=== PATIENT | male | born 1965 | race Caucasian/White ===

== ENCOUNTER → 2018-08-10 | Outpatient (REF) | payer BC ==
[~2018-08-10] MED LIST: ATOR40TA75 PO; CYAN1000VL IM; FISH1000 PO; HYDR-2807 PO; MELO15TA28 PO; PRIL20CA9 PO; TIZA2CAP PO
== END ==
LOC: M SFHCPLAZ 12:08
PROVIDERS: ATTEND Dermatology
DX: D23.61 Other benign neoplasm of skin of right upper limb, including shoulder (principal); L57.0 Actinic keratosis

== ENCOUNTER → 2019-11-19 | Outpatient (CLI) | payer BC ==
[~2019-11-19] MED LIST changes: +GASTROGRAFIN SOLUTION 30ML (Q9963) As Ordered ONE; +ISOVUE-370 76% 100ML VIAL (Q9967) As Ordered ONE
--- NOTE | 2019-11-19 13:17 | REP ---
REASON: Right lower quadrant pain. PRIORS: None. CONTRAST: 100 mL Isovue 370. Lung bases are clear. The liver, gallbladder, spleen, pancreas, adrenal glands, and kidneys are normal. The abdominal aorta and paraaortic regions are normal. The bowel loops and their mesenteries are within normal limits. There is no free fluid or free air. There is no mass or adenopathy. CT PELVIS: The bowel loops and their mesenteries are within normal limits. There is no mass or adenopathy. There is no free fluid or free air. The imaged osseous structures are within normal limits. IMPRESSION: CT findings are within normal limits. Electronically Signed by Joseph Morris DO 11/19/2019 01:53 P
[2019-11-19 13:54] LABS: BASO # 0.1 10^3/uL (0.0-0.2); BASO % 0.9 % (0.0-1.0); EOS # 0.2 10^3/uL (0.0-0.5); EOS % 2.8 % (0.0-3.0); HEMATOCRIT 47.8 % (42.0-52.0); HEMOGLOBIN 16.3 g/dl (13.5-17.5); LYMPH # 3.3 10^3/uL (1.5-5.0); LYMPH % 40.3 % (24.0-44.0); MEAN CORPUSCULAR HEMOGLOBIN 30.6 pg (27.0-33.0); MEAN CORPUSCULAR HGB CONC 34.1 g/dl (32.0-36.5); MEAN CORPUSCULAR VOLUME 89.8 fl (80.0-96.0); MONO % 11.9 % (0.0-5.0); NEUTROPHILS # 3.6 10^3/uL (1.5-8.5); NEUTROPHILS % 43.9 % (36.0-66.0); PLATELET COUNT, AUTOMATED 245 10^3/uL (150-450); RED BLOOD COUNT 5.32 10^6/uL (4.30-6.10); WHITE BLOOD COUNT 8.1 10^3/uL (4.0-10.0)
[2019-11-19 14:16] LABS: ALBUMIN 4.2 GM/DL (3.2-5.2); ALT/SGPT 62 U/L (12-78); AMYLASE 46 U/L (25-115); BILIRUBIN,TOTAL 0.4 MG/DL (0.2-1.0); BLOOD UREA NITROGEN 18 MG/DL (7-18); CALCIUM LEVEL 9.9 MG/DL (8.5-10.1); CARBON DIOXIDE LEVEL 30 MEQ/L (21-32); CHLORIDE LEVEL 106 MEQ/L (98-107); CREATININE FOR GFR 1.21 MG/DL (0.70-1.30); GLOMERULAR FILTRATION RATE > 60.0 (>56); GLUCOSE, FASTING 70 MG/DL (70-100); LIPASE 69 U/L (73-393); POTASSIUM SERUM 4.6 MEQ/L (3.5-5.1); SODIUM LEVEL 140 MEQ/L (136-145); TOTAL PROTEIN 7.8 GM/DL (6.4-8.2)
[2019-11-19 16:04] LABS: FREE T4 0.97 NG/DL (0.76-1.46)
== END ==
LOC: M RAD 10:08
PROVIDERS: ATTEND Nurse Practitioner Family
DX: R10.31 Right lower quadrant pain (principal)
CPT/HCPCS: 36415; 74177; 80053; 82150; 83690; 84439; 84443; 85025; Q9963; Q9967

== ENCOUNTER → 2020-01-04 | Outpatient (CLI) | payer BC ==
[~2020-01-04] MED LIST changes: -GASTROGRAFIN SOLUTION 30ML (Q9963) As Ordered ONE; -ISOVUE-370 76% 100ML VIAL (Q9967) As Ordered ONE
[2020-01-04 11:04] LABS: CHOLESTEROL RISK RATIO 3.942 (<5)
[2020-01-04 11:28] LABS: HEMOGLOBIN A1c 6.1 %
== END ==
LOC: M WUC 08:33
PROVIDERS: ATTEND Physician Assistant Medical
DX: R73.01 Impaired fasting glucose (principal); E78.2 Mixed hyperlipidemia

== ENCOUNTER → 2021-02-05 | Outpatient (CLI) | payer BC ==
[~2021-02-05] MED LIST changes: -HYDR-2807 PO; +HYDR-4433 PO
--- NOTE | 2021-02-05 15:03 | REP ---
INDICATION: BILATERAL PRIMARY OSTEOARTHRITIS. COMPARISON: None. TECHNIQUE: Neutral and frog-lateral views of the right femur. FINDINGS: There is an ovoid somewhat heterogeneous sclerotic lesion in the medullary space of the distal femoral diaphysis which may represent prior infarction or and enchondroma. There is no evidence for acute fracture or dislocation. Age-related changes at the hip include increased sclerosis to the acetabular roof with very subtle joint space narrowing. The knee joint appears normal.. IMPRESSION: 1. Suspected benign enchondroma versus old infarction in the distal femoral diaphysis. 2. Mild age-related degenerative changes to the left hip. <Electronically signed by Hay Muñoz > 02/05/21 [id number]
--- NOTE | 2021-02-05 15:05 | REP ---
INDICATION: BILATERAL PRIMARY OSTEOARTHRITIS. COMPARISON: None. TECHNIQUE: AP, lateral, sunrise and tunnel views of the right and left knee FINDINGS: Right knee demonstrates minimal increased sclerosis along the posterior patellar margin with subtle lateral spurring. The tibiofemoral joint appears normal. There is no evidence for acute fracture or dislocation. No effusion. Left knee demonstrates mild increased sclerosis along the tibial plateau with very subtle medial joint space narrowing suspected. Increased sclerosis along the posterior patellar margin with subtle marginal spurring and minimal patellofemoral joint space narrowing is appreciated. There is no evidence for acute fracture or dislocation. No effusion. IMPRESSION: Mild osteoarthritic degenerative changes as described above (left greater than right). <Electronically signed by Hay Muñoz > 02/05/21 [id number]
== END ==
LOC: M SOG 13:15
PROVIDERS: ATTEND Orthopaedic Surgery Sports Medicine
DX: M17.0 Bilateral primary osteoarthritis of knee (principal)

== ENCOUNTER → 2021-02-20 | Outpatient (CLI) | payer BC ==
[~2021-02-20] MED LIST changes: +PROHANCE 279.3MG/ML 15ML VIAL ONE; +PROHANCE 279.3MG/ML 5ML VIAL ONE
--- NOTE | 2021-02-20 10:57 | REP ---
INDICATION: DISTAL FEMUR BONE LESION,POSSIBLE LAT MENISCUS TEA. COMPARISON: Comparison left femur radiographs February 05, 2021 showed an intramedullary bone lesion in the distal diaphysis.. TECHNIQUE: Axial, coronal, and sagittal imaging planes utilized. T1 and T2 weighted scans are included with without fat saturation. The gadolinium enhancement dose is 20 mL of intravenous ProHance. Post gadolinium enhanced axial and sagittal T1 fat sat images are included. FINDINGS: Pre and postcontrast images of the thigh soft tissues are unremarkable. No skeletal muscle lesion mass or injury is seen. There is a intramedullary lesion in the distal diaphysis of the left femur as seen on radiographs. It measures 3.9 cm craniocaudal by 1.8 cm anteroposterior by 1.0 cm right to left. This is characterized by mixed but predominantly low T1 and low T2 signal intensity. Has a narrow zone of transition and there is no adjacent marrow edema to suggest an aggressive lesion. No cortical remodeling or erosive change. No periosteal reaction or extraosseous soft tissue component. There is no discernible contrast enhancement. Lesion is consistent with a benign enchondroma by MRI and plain film criteria. No other bony lesion is appreciated. Images including the knee demonstrate a small quantity of knee joint fluid but no internal derangement. This is not and knee protocol study. IMPRESSION: Incidental finding of a benign enchondroma in the distal femoral diaphysis. <Electronically signed by Isreal Nathan > 02/20/21 2232
== END ==
LOC: M PLAIMG 09:18
PROVIDERS: ATTEND Orthopaedic Surgery Sports Medicine
DX: C40.22 Malignant neoplasm of long bones of left lower limb (principal)
CPT/HCPCS: 73720; A9576

== ENCOUNTER → 2021-12-19 | Outpatient (CLI) | payer BC ==
[~2021-12-19] MED LIST changes: +GABA-1171 PO; +GABA600T4 PO; +OXYC-517 PO; +PEPC40TA12 PO; -PROHANCE 279.3MG/ML 15ML VIAL ONE; -PROHANCE 279.3MG/ML 5ML VIAL ONE; +TAMS1CAP17 PO; +VITMTA PO
== END ==
LOC: M LABSMTC 11:12
PROVIDERS: ATTEND Anesthesiology
DX: Z01.812 Encounter for preprocedural laboratory examination (principal)

== ENCOUNTER 2021-12-24 07:18 | Day surgery (SDC) | payer BC ==
[~2021-12-24] VITALS: Ht 180.3 cm; Wt 97.9 kg
[~2021-12-24 07:18] MED LIST changes: +LIDOCAINE 2% 100MG/5ML SDV (FOR ANES.) As Ordered ONE; +NS 1,000 ML IV ONE; +propofoL 200 MG/20 ML VIAL As Ordered ONE
[2021-12-24 09:30] VITALS: BP 119/85
== END 2021-12-24 09:43 | disposition home or self-care (01) ==
LOC: M OPP 07:18
PROVIDERS: ATTEND Surgery
DX: Z12.11 Encounter for screening for malignant neoplasm of colon (principal); Z86.010 Personal history of colon polyps; F17.210 Nicotine dependence, cigarettes, uncomplicated; Z79.02 Long term (current) use of antithrombotics/antiplatelets; Z79.899 Other long term (current) drug therapy; Z88.8 Allergy status to other drugs, medicaments and biological substances

== ENCOUNTER → 2022-02-02 | Outpatient (CLI) | payer BC ==
[~2022-02-02] MED LIST changes: -LIDOCAINE 2% 100MG/5ML SDV (FOR ANES.) As Ordered ONE; -NS 1,000 ML IV ONE; -propofoL 200 MG/20 ML VIAL As Ordered ONE
[2022-02-02 13:13] LABS: HEMOGLOBIN A1c 5.8 %
== END ==
LOC: M WUC 10:17
PROVIDERS: ATTEND Family Medicine
DX: R73.01 Impaired fasting glucose (principal)

== ENCOUNTER 2022-02-16 15:26 | Emergency (ER) | payer BC, OTHER ==
[~2022-02-16] VITALS: Ht 180.3 cm; Wt 97.7 kg
[2022-02-16] MEDS ORDERED: METH-1164 (15:56)
[2022-02-16 16:36] LABS: BASO # 0.1 10^3/uL (0.0-0.2); BASO % 0.7 % (0.0-1.0); EOS # 0.1 10^3/uL (0.0-0.5); EOS % 0.9 % (0.0-3.0); HEMATOCRIT 46.7 % (42.0-52.0); HEMOGLOBIN 15.4 g/dl (13.5-17.5); LYMPH # 0.6 10^3/uL (1.5-5.0); LYMPH % 6.7 % (24.0-44.0); MEAN CORPUSCULAR HEMOGLOBIN 30.1 pg (27.0-33.0); MEAN CORPUSCULAR VOLUME 91.4 fl (80.0-96.0); NEUTROPHILS # 6.8 10^3/uL (1.5-8.5); NEUTROPHILS % 79.2 % (36.0-66.0); PLATELET COUNT, AUTOMATED 233 10^3/uL (150-450); RED BLOOD COUNT 5.11 10^6/uL (4.30-6.10); WHITE BLOOD COUNT 8.6 10^3/uL (4.0-10.0)
[2022-02-16 17:13] LABS: ALBUMIN 4.2 GM/DL (3.2-5.2); ALT/SGPT 67 U/L (12-78); BILIRUBIN,DIRECT < 0.1 MG/DL (0.0-0.2); BILIRUBIN,TOTAL 0.3 MG/DL (0.2-1.0); BLOOD UREA NITROGEN 16 MG/DL (7-18); CALCIUM LEVEL 9.7 MG/DL (8.5-10.1); CARBON DIOXIDE LEVEL 29 MEQ/L (21-32); CHLORIDE LEVEL 106 MEQ/L (98-107); CREATININE FOR GFR 1.42 MG/DL (0.70-1.30); GLOMERULAR FILTRATION RATE 54.7 (>56); GLUCOSE, FASTING 127 MG/DL (70-100); LIPASE 90 U/L (73-393); POTASSIUM SERUM 4.3 MEQ/L (3.5-5.1); SODIUM LEVEL 139 MEQ/L (136-145); TOTAL PROTEIN 7.8 GM/DL (6.4-8.2)
[2022-02-16] MEDS ORDERED: ISOVUE-370 76% 100ML VIAL As Ordered ONE (17:39)
[2022-02-16] MEDS ORDERED: NS 1,000 ML IV ONE (17:55)
[2022-02-16] MEDS ORDERED: METOCLOPRAMIDE INJ 10MG/2ML VIAL (J2765 PER 1) IV ONE (17:55)
[2022-02-16] MEDS ORDERED: KETOROLAC 30 MG/ML 1ML VIAL IV ONE (17:55)
[2022-02-16 20:23] VITALS: BP 125/58
[2022-02-16] MEDS ORDERED: MIRA3350 PO (20:58)
[2022-02-17] MEDS ORDERED: MIRALAX *UNIT DOSE* 17GM PACKET PO SCH (09:00)
== END 2022-02-16 21:12 | disposition home or self-care (01) ==
LOC: M ED 15:26
DX: U07.1 COVID-19 (principal); K59.00 Constipation, unspecified; E86.0 Dehydration; N17.9 Acute kidney failure, unspecified; R51.9 Headache, unspecified; K21.9 Gastro-esophageal reflux disease without esophagitis; N40.0 Benign prostatic hyperplasia without lower urinary tract symptoms; Z79.899 Other long term (current) drug therapy; Z88.8 Allergy status to other drugs, medicaments and biological substances
CPT/HCPCS: 74177; 80048; 80076; 81001; 83605; 83690; 85025; 87040; 87486; 87581; 87633; 87798; 93005; 96361; 96374; 96375; 99284; J1885; J2765; Q9967

== ENCOUNTER → 2025-04-05 | Outpatient (CLI) | payer OTHER, BC ==
[~2025-04-05] MED LIST changes: +GABA-1490 PO; -GABA600T4 PO; +METH-1164; +MIRA3350 PO
[2025-04-05 12:33] LABS: BASO # 0.1 10^3/uL (0.0-0.2); BASO % 0.9 % (0.0-1.0); EOS # 0.2 10^3/uL (0.0-0.5); EOS % 2.1 % (0.0-3.0); LYMPH # 3.0 10^3/uL (1.5-5.0); LYMPH % 35.0 % (24.0-44.0); MONO # 0.8 10^3/uL (0.0-0.8); MONO % 8.8 % (2.0-8.0); NEUTROPHILS # 4.6 10^3/uL (1.5-8.5); NEUTROPHILS % 52.9 % (36.0-66.0); PLATELET COUNT, AUTOMATED 267 10^3/uL (150-450)
[2025-04-05 12:40] LABS: ALT/SGPT 65.0 U/L (7.0-40); AST/SGOT 29.0 U/L (<34); CALCIUM LEVEL 9.8 MG/DL (8.3-10.6); CARBON DIOXIDE LEVEL 26.0 MMOL/L (20-31); CHLORIDE LEVEL 106.0 MMOL/L (98-107); CHOLESTEROL LEVEL 160.0 MG/DL (<200); CHOLESTEROL RISK RATIO 4.16 (<5); CREATININE FOR GFR 1.02 MG/DL (0.70-1.30); GLOMERULAR FILTRATION RATE 84.1 (>49); LDL CHOLESTEROL 85.2 MG/DL (<100); NON-HDL-C 121.6 MG/DL; POTASSIUM SERUM 4.6 MMOL/L (3.5-5.1); SODIUM LEVEL 143.0 MMOL/L (136-145); TRIGLYCERIDES LEVEL 182.0 MG/DL (<150)
[2025-04-05 12:48] LABS: ESTIMATED AVERAGE GLUCOSE 148.0 MG/DL (60-110)
== END ==
LOC: M WUC 09:36
PROVIDERS: ATTEND Family Medicine
DX: Z00.00 Encounter for general adult medical examination without abnormal findings (principal); E78.00 Pure hypercholesterolemia, unspecified

== ENCOUNTER → 2025-07-08 | Outpatient (CLI) | payer BC, OTHER ==
[2025-07-08 18:20] LABS: ESTIMATED AVERAGE GLUCOSE 117.0 MG/DL (60-110)
[2025-07-08 18:21] LABS: CREATININE, URINE 232.4 MG/DL; MALB URINE SIEMENS < 3.0 MG/L
== END ==
LOC: M WUC 14:24
PROVIDERS: ATTEND Family Medicine
DX: E11.9 Type 2 diabetes mellitus without complications (principal)